=== PATIENT | female | born 1960 | race Caucasian/White ===

== ENCOUNTER 2017-02-25 07:37 | Outpatient (CLI) | payer BC ==
[2017-02-25 08:11] LABS: #Basophils 0.1 thou/uL (0.0-0.2); #Eosinphils 0.1 thou/uL (0.0-0.7); #Lymphocytes 1.2 thou/uL (1.20-3.40); #Monocytes 0.2 thou/uL (0.11-0.59); #Neutrophils 1.9 thou/uL (1.40-6.50); %Basophils 1.4 % (0.0-1.0); %Eosinophils 3.8 % (0.0-10.0); %Lymphocytes 34.8 % (21.0-51.0); Mean Platelet Volume 6.8 fL (7.4-10.4); Red Blood Cell (RBC) Count 4.67 mill/uL (4.20-5.40); White Blood Cell (WBC) Count 3.5 thou/uL (4.8-10.8)
[2017-02-25 08:23] LABS: ALT (SGPT) 18 U/L (8-55); AST (SGOT) 22 U/L (5-34); Alkaline Phosphatase 93 U/L (40-150); Anion Gap 14 mmol/L (10-20); BUN (Urea Nitrogen) 13 mg/dL (9.8-20.1); Bilirubin, Total 0.5 mg/dL (0.2-1.2); Calc. Creatinine Clearance 0 mL/min (70-130); Calcium 10.3 mg/dL (7.8-10.44); Carbon Dioxide 30 mmol/L (22-29); Chloride 102 mmol/L (98-107); Estimated GFR-MDRD 70; Globulin 3.1 g/dL (2.4-3.5); Protein, Total 7.6 g/dL (6.0-8.3)
[2017-02-25] MEDS ORDERED: Iopamidol 370 76% 100 ML VIAL ONE (09:00)
--- NOTE | 2017-02-25 10:01 | CT ---
ABDOMEN AND PELVIC CT WITH CONTRAST: CLINICAL HISTORY: Prior colonic resection. History of colon cancer. FINDINGS: There is no focal hepatic or splenic lesion. Streak artifact from spinal hardware does limit visuali zation of the abdomen and pelvis. Punctate parenchymal hypodensity of the kidneys bilaterally, too s mall to further characterize. No adrenal mass. The pancreas is unremarkable. There is no evidence of bowel obstruction. There is moderate retained fecal material throughout the colon. Anastomotic s uture is seen involving the distal small bowel and right hemicolon correlative to the patient's histo ry of prior partial colectomy. Heterogeneity of the uterus and adnexa present, incompletely assessed by CT imaging. There is mild v ascular calcification. Mild subpleural nodularity is seen at the infralateral right lung base. Ther e is mild volume loss at each lung base. The osseous structures reveal no acute abnormality. IMPRESSION: No CT evidence of metastatic disease. POS: LALI
== END 2017-02-25 07:38 | disposition home or self-care (01) ==
LOC: SCSCT 07:37
PROVIDERS: ATTEND Internal Medicine Gastroenterology
DX: Z08 Encounter for follow-up examination after completed treatment for malignant neoplasm (principal); Z85.038 Personal history of other malignant neoplasm of large intestine
CPT/HCPCS: 74177; 80053; 85025

== ENCOUNTER 2017-12-29 13:53 | Outpatient (CLI) | payer BC ==
--- NOTE | 2017-12-29 17:24 | MMO ---
BILATERAL SCREENING MAMMOGRAM: Date: 12/29/17 INDICATION: Annual exam. COMPARISON: Prior exams dated 12/03/16, 08/14/15, and 01/04/14. FINDINGS: Interpretation of this exam was assisted with computer-aided detection. There are scattered fibroglandular elements. There is a new focal asymmetry within the upper aspect of the right breast on the MLO projection only . This is not seen on the CC or exaggerated CCL projection of the right breast. This asymmetry is ass ociated with a cluster of microcalcifications. There are benign-appearing calcifications bilaterally. IMPRESSION: BIRADS 0: Incomplete: Need Additional Imaging Evaluation and/or Prior Mammograms for Comparison There is a new focal asymmetry with associated cluster of microcalcifications within the upper patient access manager ior aspect of the right breast on the MLO projection only. This is not localized on the CC or exagger ated CCL projection. Recommend a LM projection with possibility of ultrasound evaluation. No suspicious abnormality seen within the left breast. The facility will notify patient of need for additional imaging services. POS: LALI
== END 2017-12-29 13:54 | disposition home or self-care (01) ==
LOC: SCSMAMMO 13:53
PROVIDERS: ATTEND Internal Medicine
DX: Z12.31 Encounter for screening mammogram for malignant neoplasm of breast (principal); R92.0 Mammographic microcalcification found on diagnostic imaging of breast; N64.89 Other specified disorders of breast
CPT/HCPCS: 77067

== ENCOUNTER 2018-01-07 13:54 | Outpatient (CLI) | payer BC ==
--- NOTE | 2018-01-07 16:43 | ULT ---
RIGHT BREAST ULTRASOUND: Date: 01/07/18 HISTORY: Breast mass. COMPARISON: Mammograms from same date. FINDINGS: Corresponding to the mammographic findings is a taller than wide, 6.0 x 7.0 mm mass, which is hypoech oic, without significant posterior acoustic characteristics with an echogenic halo. IMPRESSION: BIRADS Category 4: Suspicious. Ultrasound guided biopsy recommended. Dr. Valverde notified of the findings via telephone at 1442 hours. CODE CR. POS: OFF
== END 2018-01-07 13:55 | disposition home or self-care (01) ==
LOC: BICMAMMO 13:54
PROVIDERS: ATTEND Internal Medicine
DX: R92.1 Mammographic calcification found on diagnostic imaging of breast (principal); Z80.3 Family history of malignant neoplasm of breast
CPT/HCPCS: G0279

== ENCOUNTER → 2018-01-10 | Day surgery (SDC) | payer BC ==
--- NOTE | 2018-01-10 15:06 | ULT ---
ULTRASOUND GUIDED RIGHT BREAST BIOPSY: 01/10/2018 PROVIDED CLINICAL HISTORY: Right breast mass. FINDINGS: Informed consent was obtained from the patient. The patient was placed on the sonography table, and the previously described 11 to 12 o'clock right breast mass was localized sonographically. The skin overlying this region was prepped and draped in the usual sterile manner and infiltrate with 1% buffe red Lidocaine. A small skin incision was made. Continuous ultrasound guidance was utilized to advan ce a core biopsy device adjacent to this mass, with five core samples obtained. Subsequently, sonogr aphic guidance was utilized to deploy a biopsy clip adjacent to the mass. No immediate complications . Post biopsy mammograms performed appropriate clip deployment. IMPRESSION: Technically successful right breast biopsy. Correlate with histology results to follow. POS: LALI
== END ==
LOC: BICULT 12:44
PROVIDERS: ATTEND Internal Medicine
PROC: 0HBT3ZX Excision of Right Breast, Percutaneous Approach, Diagnostic (ICD-10-PCS; principal; 2018-01-10)
DX: C50.411 Malignant neoplasm of upper-outer quadrant of right female breast (principal)
CPT/HCPCS: 19083; 88305; 88341; 88342